=== PATIENT | male | born 1945 | race Caucasian/White ===

== ENCOUNTER 2020-12-03 01:30 | Emergency (ER) | payer MEDICARE, OTHER ==
[~2020-12-03] VITALS: Ht 175.3 cm; Wt 102.5 kg
[2020-12-03] MEDS ORDERED: IV NORMAL SALINE 1000 ML BAG IV ONE (01:45)
--- NOTE | 2020-12-03 01:48 | NUR ---
PT BIB [facility] FROM HOME FOR SYNCOPE OCCURED IN PT BATHROOM. DENIES ANY HEAD INJURY, NO KO. A/O X4, NO SOB OR LABORED BREATHING, AFEBRILE. DENIES CP/PRESSURE. DR. SANTIAGO AT BEDSIDE, MSE IN PROGRESS.
[2020-12-03 01:50] LABS: HEMATOCRIT 43.6 % (36.7-47.1); MEAN CORPUSCULAR HEMOGLOBIN 32.5 uug (23.8-33.4); MEAN CORPUSCULAR VOLUME 94.5 fL (73.0-96.2); PLATELET COUNT (AUTO) 176 K/uL (152-348)
--- NOTE | 2020-12-03 01:52 | NUR ---
XRAY AT BEDSIDE
[2020-12-03 01:58] LABS: CREATININE 1.3 mg/dL (0.6-1.3)
[2020-12-03 02:04] LABS: BILIRUBIN,DIRECT 0.2 mg/dL (0.0-0.2); BILIRUBIN,TOTAL 0.5 mg/dL (0.2-1.0); TOTAL PROTEIN, SERUM 7.2 g/dL (6.4-8.2)
[2020-12-03] MEDS ORDERED: ASCO500C18 PO (02:09)
[2020-12-03] MEDS ORDERED: METF-440 PO (02:09)
[2020-12-03] MEDS ORDERED: APIX5TAB PO (02:09)
[2020-12-03] MEDS ORDERED: ROSU10TA2 PO (02:09)
[2020-12-03] MEDS ORDERED: DILT180C90 PO (02:09)
[2020-12-03] MEDS ORDERED: CYAN100T44 PO (02:09)
[2020-12-03] MEDS ORDERED: AZIL80TA PO (02:09)
[2020-12-03] MEDS ORDERED: CHOL400T PO (02:09)
[2020-12-03] MEDS ORDERED: PANT40TA49 PO (02:09)
[2020-12-03 03:54] LABS: *BILIRUBIN,URIN NEGATIVE (NEGATIVE); *CLARITY,URINE CLEAR (CLEAR); *COLOR,URINE YELLOW (YELLOW); *KETONES,URINE NEGATIVE (NEGATIVE); *UROBILINOGEN,URINE 0.2 E.U./dl (NORMAL); LEUKOCYTE ESTERASE ,URINE NEGATIVE (NEGATIVE); NITRITE, URINE NEGATIVE (NEGATIVE); PH,URINE 6.5 (5.0-8.0); UGLUCOSE NEGATIVE (NEGATIVE)
[2020-12-03 04:01] LABS: *BLOOD, URINE TRACE (NEGATIVE)
[2020-12-03 04:02] LABS: BACTERIA,URINE NONE SEEN /HPF (NONE SEEN); SQUAMOUS EPITHELIAL CELL,UR FEW /HPF (NONE SEEN)
--- NOTE | 2020-12-03 04:20 | NUR ---
Patient discharged to home in stable condition. No changes in LOC. Denies any pain/discomfort upon discharge. No n/v/d. Denies any WHEAT/dizziness. Written and verbal after care instructions given. Patient verbalizes understanding of instructions. Stressed follow up or return to ER for worsening s/s. Steady gait.
[2020-12-03 04:37] VITALS: BP 148/84
== END 2020-12-03 04:30 | disposition home or self-care (01) ==
LOC: ER 01:37
DX: R55 Syncope and collapse (principal); I45.10 Unspecified right bundle-branch block; R73.03 Prediabetes; K21.9 Gastro-esophageal reflux disease without esophagitis; Z86.718 Personal history of other venous thrombosis and embolism
CPT/HCPCS: 36415; 70030-TC; 71045; 85025; 85730; 93005; A4663; J7030